=== PATIENT | male | born 1950 | race African-American/Black ===

== ENCOUNTER 2020-07-23 07:30 | Emergency (ER) | payer OTHER ==
[~2020-07-23] VITALS: Ht 170.2 cm; Wt 73.0 kg
[2020-07-23] MEDS ORDERED: ATOR10TA69 PO (07:34)
[2020-07-23] MEDS ORDERED: ONDANSETRON HCL 4MG/2ML INJ IV STA (07:53)
[2020-07-23] MEDS ORDERED: SODIUM CHLORIDE 0.9% 1,000 ML IV ONE (08:00)
[2020-07-23 08:30] LABS: BASOPHILS % 0.8 % (0.0-2.0); EOSINOPHILS % 0.1 % (0.0-5.0); HEMATOCRIT. 42.2 % (42.0-52.0); HEMOGLOBIN. 14.5 g/dL (14.0-18.0); LYMPHOCYTES % 21.3 % (20.0-50.0); MEAN CORPUSCULAR HEMOGLOBIN 33.2 pg (28.0-32.0); MEAN CORPUSCULAR VOLUME 96.5 fL (80.0-94.0); MEAN PLATELET VOLUME 8.5 fl (7.4-10.4); MONOCYTES % 2.3 % (2.0-8.0); NEUTROPHILS % 75.5 % (40.0-76.0); PLATELET 218 x1000/uL (130-400); RED BLOOD CELL COUNT 4.37 mill/uL (4.7-6.1); RED CELL DISTRIBUTION WIDTH 13.3 % (11.6-14.6)
[2020-07-23 08:39] LABS: CHLORIDE 99 mEq/L (98-107)
[2020-07-23] MEDS ORDERED: LIDOCAINE HCL 1% 20ML VIAL (Pyxis) INJ ONE (09:32)
[2020-07-23] MEDS ORDERED: DOBUTAMINE 250MG PREMIX 250 ML IV ONE (11:01)
[2020-07-23] MEDS ORDERED: DOPAMINE 400MG/250ML PREMIX 250 ML IV ONE (11:07)
[2020-07-23 11:28] VITALS: BP 164/83
== END 2020-07-23 11:41 | disposition home or self-care (01) ==
LOC: ER 07:30
DX: R42 Dizziness and giddiness (principal); I10 Essential (primary) hypertension; E78.00 Pure hypercholesterolemia, unspecified
CPT/HCPCS: 36415; 70450; 71045; 80053; 83880; 84484; 85025; 93005; 96361; 96374; 99285; J1250; J1265; J1644; J2405; J3490; J7030

== ENCOUNTER 2020-12-16 05:44 | Emergency (ER) | payer OTHER ==
[~2020-12-16] VITALS: Ht 172.7 cm; Wt 79.0 kg
[~2020-12-16 05:44] MED LIST: ATOR10TA69 PO
[2020-12-16] MEDS ORDERED: ADENOSINE 3 MG/ML 2ML VIAL IV ONE ×2 (06:30)
[2020-12-16] MEDS ORDERED: SODIUM CHLORIDE 0.9% 1,000 ML IV ONE (06:30)
[2020-12-16] MEDS ORDERED: LORAZEPAM 2MG/ML CPJ IV ONE ×2 (06:45→08:15)
[2020-12-16 07:06] LABS: HEMATOCRIT. 41.1 % (42.0-52.0); HEMOGLOBIN. 13.8 g/dL (14.0-18.0); LYMPHOCYTES % 30.5 % (20.0-50.0); MEAN CORPUSCULAR HEMOGLOBIN 32.7 pg (28.0-32.0); MEAN CORPUSCULAR VOLUME 97.4 fL (80.0-94.0); MEAN PLATELET VOLUME 8.2 fl (7.4-10.4); MONOCYTES % 2.7 % (2.0-8.0); NEUTROPHILS % 65.8 % (40.0-76.0); PLATELET 398 x1000/uL (130-400); RED BLOOD CELL COUNT 4.22 mill/uL (4.7-6.1); RED CELL DISTRIBUTION WIDTH 14.1 % (11.6-14.6)
[2020-12-16 07:10] LABS: CHLORIDE 109 mEq/L (98-107)
[2020-12-16 07:55] LABS: PROTHROMBIN TIME 10.6 sec (9.6-11.0)
[2020-12-16] MEDS ORDERED: FOLIC ACID 1 MG, THIAMINE HCL 100 MG, MVI, ADULT NO.1 10 ML in DEXTROSE 5% WATER 1,000 ML IV ONE (08:15)
[2020-12-16] MEDS ORDERED: CHLORDIAZEPOXIDE 25MG CAPSULE PO ONE (08:15)
[2020-12-16] MEDS ORDERED: DILTIAZEM HCL 5MG/ML 5ML VIAL IV ONE (09:00)
[2020-12-16] MEDS ORDERED: DILTIAZEM HCL 60MG TABLET PO ONE (09:30)
[2020-12-16] MEDS ORDERED: ENOXAPARIN 80MG/0.8ML SYR SUBCUT ONE (09:30)
[2020-12-16 09:57] LABS: CLARITY URINE CLEAR (CLEAR); COLOR URINE YELLOW (YELLOW); KETONES URINE TRACE (NEGATIVE); LEUKOCYTE ESTERASE URINE NEGATIVE (NEGATIVE); NITRITE URINE NEGATIVE (NEGATIVE); OCCULT BLOOD URINE NEGATIVE (NEGATIVE); PROTEIN URINE NEGATIVE (NEGATIVE); SPECIFIC GRAVITY URINE 1.008 (1.005-1.030); UROBILINOGEN URINE 0.2 E.U./dL (0.2-1.0)
[2020-12-16] MEDS ORDERED: IOHEXOL-350 100 ML BOTTLE ONE (12:04)
[2020-12-16 17:30] VITALS: BP 128/68
== END 2020-12-16 18:00 | disposition short-term general hospital (02) ==
LOC: ER 05:44 → CANBEDREQ 12-17 06:35
DX: I48.91 Unspecified atrial fibrillation (principal); F10.239 Alcohol dependence with withdrawal, unspecified; Y90.0 Blood alcohol level of less than 20 mg/100 ml; I10 Essential (primary) hypertension
CPT/HCPCS: 36415; 71045; 71275; 80053; 81003; 82962; 83690; 84484; 85025; 85610; 93005; 96361; 96365; 96372; 96375; 96376; 99291; J1650; J2060; J3411; J3490; J7030; J7070; Q9967; J0153

== ENCOUNTER 2021-08-20 09:38 | Emergency (ER) | payer OTHER ==
[~2021-08-20] VITALS: Ht 177.8 cm; Wt 80.0 kg
[2021-08-20] MEDS ORDERED: SODIUM CHLORIDE 0.9% 1,000 ML IV ONE (10:00)
[2021-08-20 11:02] LABS: HEMATOCRIT. 39.9 % (42.0-52.0); HEMOGLOBIN. 12.9 g/dL (14.0-18.0); MEAN CORPUSCULAR HEMOGLOBIN 32.1 pg (28.0-32.0); MEAN CORPUSCULAR VOLUME 99.4 fL (80.0-94.0); MEAN PLATELET VOLUME 10.1 fl (7.4-10.4); PLATELET 65 x1000/uL (130-400); RED BLOOD CELL COUNT 4.01 mill/uL (4.7-6.1); RED CELL DISTRIBUTION WIDTH 13.5 % (11.6-14.6)
[2021-08-20 11:09] LABS: CHLORIDE 95 mEq/L (98-107)
[2021-08-20 11:12] LABS: PROTHROMBIN TIME 10.3 sec (9.6-11.0)
[2021-08-20] MEDS ORDERED: VANCOMYCIN 1G PREMIX 200 ML IV ONE (11:30)
[2021-08-20] MEDS ORDERED: PIPERACILLIN/TAZ 3.375G PREMIX 50 ML IV ONE (11:30)
[2021-08-20] MEDS ORDERED: SODIUM CHLORIDE 0.9% 1000ML BAG (SEPSIS BOLUS) IV ONE (11:30)
[2021-08-20 11:43] LABS: PLATELET ESTIMATE DECREASED
[2021-08-20] MEDS ORDERED: ONDANSETRON HCL 4MG/2ML INJ IV ONE (12:45)
[2021-08-20 14:39] VITALS: BP 158/84
== END 2021-08-20 15:46 | disposition short-term general hospital (02) ==
LOC: ER 09:50 → CANBEDREQ 21:33
DX: A41.9 Sepsis, unspecified organism (principal); R65.20 Severe sepsis without septic shock; I10 Essential (primary) hypertension; E78.00 Pure hypercholesterolemia, unspecified; Z20.822 Contact with and (suspected) exposure to COVID-19
CPT/HCPCS: 36415; 71045; 80053; 83605; 84145; 84484; 85025; 85610; 87040; 87426; 93005; 96361; 96365; 96368; 96375; 99291; J2405; J2543; J3370; J7030

== ENCOUNTER 2022-07-02 23:41 | Emergency (ER) | payer OTHER ==
[~2022-07-02] VITALS: Ht 180.3 cm; Wt 80.0 kg
[2022-07-03] MEDS ORDERED: SODIUM CHLORIDE 0.9% 1,000 ML IV ONE
[2022-07-03 00:21] LABS: HEMATOCRIT. 37.5 % (42.0-52.0); HEMOGLOBIN. 12.3 g/dL (14.0-18.0); MEAN CORPUSCULAR HEMOGLOBIN 31.5 pg (28.0-32.0); MEAN CORPUSCULAR VOLUME 96.2 fL (80.0-94.0); MEAN PLATELET VOLUME 8.5 fl (7.4-10.4); PLATELET 270 x1000/uL (130-400); RED CELL DISTRIBUTION WIDTH 16.5 % (11.6-14.6)
[2022-07-03 00:24] LABS: CHLORIDE 98 mEq/L (98-107)
[2022-07-03 00:39] LABS: ETHANOL BLOOD 331 mg/dL
[2022-07-03 00:56] LABS: PLATELET ESTIMATE NORMAL
[2022-07-03 05:00] VITALS: BP 124/78
== END 2022-07-03 05:00 | disposition home or self-care (01) ==
LOC: ER 23:41
DX: T51.0X1A Toxic effect of ethanol, accidental (unintentional), initial encounter (principal); R51.9 Headache, unspecified; I10 Essential (primary) hypertension; E78.00 Pure hypercholesterolemia, unspecified; Y92.9 Unspecified place or not applicable
CPT/HCPCS: 36415; 70450; 71045; 80053; 80320; 85025; 96360; 96361; 99285; C1893; J7030; G0480

== ENCOUNTER 2022-11-16 10:29 | Emergency (ER) | payer OTHER ==
[~2022-11-16] VITALS: Ht 175.3 cm; Wt 70.0 kg
[2022-11-16 10:31] VITALS: BP 105/73; PULSE 92; RESP 18; TEMP 97.6; O2SAT 100
[2022-11-16] MEDS ORDERED: AMOXICILLIN/POTASSIUM CLAVULANATE 875/125MG TAB PO NR (13:45)
[2022-11-16] MEDS ORDERED: AMOX1TAB16 MT (13:49)
[2022-11-16] MEDS ORDERED: AZITHROMYCIN 500 MG in DEXT 5% WATER 250 ML IV SCH (14:00)
== END 2022-11-16 14:40 | disposition home or self-care (01) ==
LOC: ER 10:37
DX: J18.9 Pneumonia, unspecified organism (principal); J90 Pleural effusion, not elsewhere classified; I10 Essential (primary) hypertension
CPT/HCPCS: 71045; 99284; J0456; J7060